=== PATIENT | male | born 1985 | race American Indian/Alaskan Native ===

== ENCOUNTER 2017-05-29 21:09 | Emergency (ER) | payer MEDICAID ==
[2017-05-29 21:09] VITALS: BMI 26.6
[2017-05-29 21:17] VITALS: TEMP 97.8; O2SAT 99
--- NOTE | 2017-05-29 21:31 | ED PDOC ---
HPI: Psych/Substance Abuse Time Seen by Provider: 05/29/17 21:20 Chief Complaint (Nursing): Substance Abuse History Per: EMS Onset/Duration Of Symptoms: Unknown Current Symptoms Are (Timing): Still Present Additional Complaint(s): Brought by EMS after being found standing in street confused and dazed. Pt has no c/o. Past Medical History Vital Signs: Last Vital Signs Temp 97.8 F 05/29/17 21:14 Pulse 96 H 05/29/17 21:14 Resp 18 05/29/17 21:14 BP 137/100 H 05/29/17 21:14 Pulse Ox 99 05/29/17 21:14 - Medical History PMH: Depression, HTN (on and off) - Family History Family History: States: Unknown Family Hx - Immunization History Hx Tetanus Toxoid Vaccination: No Hx Influenza Vaccination: No Hx Pneumococcal Vaccination: No - Home Medications Home Medications: Ambulatory Orders Medication Instructions Recorded Cyclobenzaprine [Cyclobenzaprine 10 mg PO TID #21 tab 04/06/17 HCl] Ibuprofen [Motrin] 600 mg PO Q8 #30 tab 04/06/17 - Allergies Allergies/Adverse Reactions: Allergies Allergy/AdvReac Type Severity Reaction Status Date / Time Penicillins Allergy RASH Verified 05/29/17 21:13 Review of Systems Review Of Systems: ROS cannot be obtained secondary to pt's inabilty to answer questions. Physical Exam - Reviewed Nursing Documentation Reviewed: Yes Vital Signs Reviewed: Yes - Physical Exam Appears: Positive for: Non-toxic, No Acute Distress Head Exam: Positive for: ATRAUMATIC, NORMAL INSPECTION, NORMOCEPHALIC Skin: Positive for: Normal Color, Warm, DRY Eye Exam: Positive for: EOMI, Normal appearance, PERRL ENT: Positive for: Normal ENT Inspection Neck: Positive for: Normal, Painless ROM Cardiovascular/Chest: Positive for: Regular Rate, Rhythm Respiratory: Positive for: CNT, Normal Breath Sounds Gastrointestinal/Abdominal: Positive for: Normal Exam, Bowel Sounds, Soft Back: Positive for: Normal Inspection Extremity: Positive for: Normal ROM, Other (No swelling or lesions) Neurologic/Psych: Positive for: Alert. Negative for: Oriented (x1), Motor/ Sensory Deficits - Laboratory Results Result Diagrams: 05/29/17 21:42 05/29/17 21:42 - ECG O2 Sat by Pulse Oximetry: 99 Disposition - Clinical Impression Clinical Impression: Altered mental status - Patient ED Disposition Is Patient to be Admitted: Transfer of Care - Disposition Disposition: Transfer of Care Disposition Time: 23:53 Condition: FAIR Forms: [employer] (Vietnamese) Patient Signed Over To: Elpidio Jasmine
[2017-05-29 21:52] LABS: BASO % 0.3 % (0.0-2.0); EOS % 0.6 % (0.0-4.0); HEMOGLOBIN 15.6 g/dL (12.0-18.0); LYMPH # 1.6 K/uL (1.0-4.3); LYMPH % 21.7 % (20.0-40.0); MEAN CELL VOLUME 96.5 fl (80.0-94.0); MEAN CORPUSCULAR HEMOGLOBIN 32.8 pg (27.0-31.0); MEAN CORPUSCULAR HGB CONC 33.9 g/dL (33.0-37.0); MEAN PLATELET VOLUME 8.2 fl (7.2-11.7); MONO # 0.5 K/uL (0.0-0.8); MONO % 7.2 % (0.0-10.0); NEUT # 5.2 K/uL (1.8-7.0); NEUT % 70.2 % (50.0-75.0); NRBC % 0.1 % (0.0-0.0); RBC 4.77 Mil/uL (4.40-5.90); RED CELL DISTRIBUTION WIDTH 12.9 % (11.5-14.5); WHITE BLOOD COUNT 7.4 K/uL (4.8-10.8)
[2017-05-29 21:58] LABS: ALB/GLOB RATIO 1.4 (1.0-2.1); ALBUMIN 4.5 g/dL (3.5-5.0); ALT/SGPT 47 U/L (21-72); AST/SGOT 37 U/L (17-59); BLOOD UREA NITROGEN 20 mg/dl (9-20); CALCIUM 10.6 mg/dL (8.4-10.2); GFR AFRICAN-AMERICAN > 60; GFR NON-AFRICAN AMERICAN > 60
[2017-05-29] MEDS ORDERED: Sodium Chloride 0.9% 1,000 ML IV STA (23:57)
[2017-05-29 23:59] LABS: BARBITURATES, UR NEGATIVE (NEGATIVE); BENZODIAZEPINES, UR NEGATIVE (NEGATIVE); OPIATES, UR NEGATIVE (NEGATIVE); PHENCYCLIDINE, UR POSITIVE (NEGATIVE)
--- NOTE | 2017-05-29 23:59 | ED PDOC ---
- Laboratory Results Result Diagrams: 05/29/17 21:42 05/29/17 21:42 - ECG O2 Sat by Pulse Oximetry: 99 (RA) Pulse Ox Interpretation: Normal Medical Decision Making Medical Decision Making: Time: 00:00 --endorsed to me pending sobriety and reevaluation noted urine tox. pt awake and alert. no SI or HI. At this hour patient is alert, awake, oriented x 3, with steady gait and speech. Patient is stable for discharge. Diagnosis is PCP and marijuana use. Patient has no psychiatric complaints. Scribe Attestation: Documented by Lilia Gomez, acting as a scribe for Mitali Magallanes MD. Provider Scribe Attestation: All medical record entries made by the Scribe were at my direction and personally dictated by me. I have reviewed the chart and agree that the record accurately reflects my personal performance of the history, physical exam, medical decision making, and the department course for this patient. I have also personally directed, reviewed, and agree with the discharge instructions and disposition. Disposition Counseled Patient/Family Regarding: Diagnosis, Need For Followup - Clinical Impression Clinical Impression: Altered mental status, Polysubstance abuse - POA Present On Arrival: None - Disposition Disposition: Routine/Home Disposition Time: 01:10 Condition: IMPROVED Additional Instructions: follow up with your primary doctor in 1-2 days return to the ED with any worsening or concerning symptoms Instructions: Polysubstance Abuse (DC) Forms: [employer] (Lao)
[2017-05-30 01:08] VITALS: BP 122/73; PULSE 61; RESP 16
--- NOTE | 2017-05-30 07:37 | CARD ---
APPROVED REPORT EKG Measurement Heart [id number] CT [id number] <Conclusion> Normal sinus rhythm Early repolarization Normal ECG
== END 2017-05-30 01:21 | disposition home or self-care (01) ==
LOC: H.ER 21:09
DX: R41.82 Altered mental status, unspecified (principal); F19.10 Other psychoactive substance abuse, uncomplicated; Z86.59 Personal history of other mental and behavioral disorders; Z88.0 Allergy status to penicillin; I10 Essential (primary) hypertension
CPT/HCPCS: 80053; 85025; 93005; 99283; G0480

== ENCOUNTER 2017-06-15 22:50 | Emergency (ER) | payer SELFPAY ==
[2017-06-15 22:50] VITALS: BMI 26.6
[2017-06-15 22:56] VITALS: RESP 18; TEMP 97.6
[2017-06-16 00:16] LABS: BASO % 0.4 % (0.0-2.0); EOS % 0.7 % (0.0-4.0); HEMOGLOBIN 14.7 g/dL (12.0-18.0); LYMPH # 1.6 K/uL (1.0-4.3); LYMPH % 22.1 % (20.0-40.0); MEAN CORPUSCULAR HEMOGLOBIN 32.8 pg (27.0-31.0); MEAN CORPUSCULAR HGB CONC 34.1 g/dL (33.0-37.0); MEAN PLATELET VOLUME 8.4 fl (7.2-11.7); MONO # 0.6 K/uL (0.0-0.8); MONO % 8.5 % (0.0-10.0); NEUT # 4.8 K/uL (1.8-7.0); NEUT % 68.3 % (50.0-75.0); RBC 4.49 Mil/uL (4.40-5.90)
[2017-06-16 00:24] LABS: BLOOD UREA NITROGEN 16 mg/dl (9-20); CALCIUM 10.4 mg/dL (8.4-10.2); GFR AFRICAN-AMERICAN > 60; GFR NON-AFRICAN AMERICAN > 60
--- NOTE | 2017-06-16 01:33 | ED PDOC ---
HPI: Psych/Substance Abuse Time Seen by Provider: 06/15/17 23:01 Chief Complaint (Nursing): Alcohol Ingestion Chief Complaint (Provider): Alcohol Intoxication ED Caveat: Intoxicated, Uncooperative History Per: Patient History/Exam Limitations: intoxication Current Symptoms Are (Timing): Still Present Suicide/Self Injury Attempted (Context): None Modifying Factor(s): Alcohol Associated Symptoms: Depression Past Medical History Vital Signs: Last Vital Signs Temp 97.6 F 06/15/17 22:54 Pulse 102 H 06/15/17 22:54 Resp 18 06/15/17 22:54 BP Pulse Ox 98 06/15/17 22:54 - Medical History PMH: Depression, HTN (on and off) - Family History Family History: States: Unknown Family Hx - Immunization History Hx Tetanus Toxoid Vaccination: No Hx Influenza Vaccination: No Hx Pneumococcal Vaccination: No - Home Medications Home Medications: Ambulatory Orders Medication Instructions Recorded Cyclobenzaprine [Cyclobenzaprine 10 mg PO TID #21 tab 04/06/17 HCl] Ibuprofen [Motrin] 600 mg PO Q8 #30 tab 04/06/17 - Allergies Allergies/Adverse Reactions: Allergies Allergy/AdvReac Type Severity Reaction Status Date / Time Penicillins Allergy RASH Verified 05/29/17 21:13 Review of Systems Review Of Systems: ROS cannot be obtained secondary to pt's inabilty to answer questions. Physical Exam - Reviewed Nursing Documentation Reviewed: Yes Vital Signs Reviewed: Yes - Physical Exam Appears: Negative for: Non-toxic Head Exam: Positive for: ATRAUMATIC, NORMAL INSPECTION, NORMOCEPHALIC Cardiovascular/Chest: Positive for: Regular Rate, Rhythm, Chest Non Tender. Negative for: Edema, Gallop, Murmur, Bradycardia, Tachycardia, Friction Rub, Irregularly Irregular Respiratory: Positive for: Normal Breath Sounds. Negative for: Crackles, Rales , Rhonchi, Stridor, Wheezing, Respiratory Distress Pulses-Carotid (L): 2+ Pulses-Radial (L): 2+ Gastrointestinal/Abdominal: Positive for: Bowel Sounds, Soft. Negative for: Tenderness Neurologic/Psych: Negative for: Oriented, Mood/Affect - Laboratory Results Result Diagrams: 06/15/17 23:59 06/15/17 23:59 - ECG O2 Sat by Pulse Oximetry: 98 Medical Decision Making Medical Decision Making: Pt cleared medically and cleared by crisis for discharge with referrals dx Substance Abuse Disposition - Clinical Impression Clinical Impression: Alcohol abuse, Alcohol ingestion, Substance abuse - Patient ED Disposition Is Patient to be Admitted: No Doctor Will See Patient In The: Office Counseled Patient/Family Regarding: Studies Performed, Diagnosis, Need For Followup - Disposition Disposition Time: 01:35 Condition: GOOD Instructions: Drug Abuse and Drug Addiction (DC), Drug Abuse Treatment Forms: [employer] (Lebanese)
[2017-06-16 02:26] VITALS: BP 117/64; PULSE 65; O2SAT 99
== END 2017-06-16 02:15 | disposition home or self-care (01) ==
LOC: H.ER 22:50
DX: F10.129 Alcohol abuse with intoxication, unspecified (principal); F19.10 Other psychoactive substance abuse, uncomplicated; F32.9 Major depressive disorder, single episode, unspecified; I10 Essential (primary) hypertension; Z88.0 Allergy status to penicillin
CPT/HCPCS: 80048; 82948; 85025; 99283; G0480

== ENCOUNTER 2018-04-26 23:46 | Emergency (ER) | payer SELFPAY ==
[2018-04-26 23:47] VITALS: BMI 26.6
[2018-04-26 23:50] VITALS: BP 132/89; PULSE 77; RESP 16; TEMP 97.8; O2SAT 100
--- NOTE | 2018-04-27 00:22 | ED PDOC ---
HPI: General Adult Time Seen by Provider: 04/27/18 00:20 Chief Complaint (Nursing): Medical Clearance Chief Complaint (Provider): MEDICAL CLEARANCE History Per: Patient (32 Y/O MALE HERE IN [employer]ICE [employer] FOR MEDICAL /PSYCHIATRIC CLEARANCE. PATIENT DENIES ANY MEDICAL PROBLEMS OR MEDICATIONS. STATES HE FEELS LIKE HE NEEDS NEBULIZING TREATMENT.) Past Medical History Reviewed: Historical Data, Nursing Documentation, Vital Signs Vital Signs: Last Vital Signs Temp 97.8 F 04/26/18 23:48 Pulse 77 04/26/18 23:48 Resp 16 04/26/18 23:48 BP 132/89 04/26/18 23:48 Pulse Ox 100 04/26/18 23:48 - Medical History PMH: Depression, HTN (on and off) Denies: Diabetes, Hepatitis, HIV, Seizures, Sexually Transmitted Disease - Family History Family History: States: Unknown Family Hx - Immunization History Hx Tetanus Toxoid Vaccination: No Hx Influenza Vaccination: No Hx Pneumococcal Vaccination: No - Home Medications Home Medications: Ambulatory Orders Medication Instructions Recorded Cyclobenzaprine [Cyclobenzaprine 10 mg PO TID #21 tab 04/06/17 HCl] Ibuprofen [Motrin] 600 mg PO Q8 #30 tab 04/06/17 - Allergies Allergies/Adverse Reactions: Allergies Allergy/AdvReac Type Severity Reaction Status Date / Time Penicillins Allergy RASH Verified 04/26/18 23:48 Review of Systems ROS Statement: Except As Marked, All Systems Reviewed And Found Negative Physical Exam - Reviewed Nursing Documentation Reviewed: Yes Vital Signs Reviewed: Yes - Physical Exam Appears: Positive for: Well, Non-toxic, No Acute Distress Head Exam: Positive for: ATRAUMATIC, NORMAL INSPECTION, NORMOCEPHALIC Skin: Positive for: Normal Color, Warm, DRY Eye Exam: Positive for: EOMI, Normal appearance, PERRL ENT: Positive for: Normal ENT Inspection Neck: Positive for: Normal, Painless ROM Cardiovascular/Chest: Positive for: Regular Rate, Rhythm Respiratory: Positive for: CNT, Normal Breath Sounds Gastrointestinal/Abdominal: Positive for: Normal Exam, Soft Back: Positive for: Normal Inspection Extremity: Positive for: Normal ROM Neurologic/Psych: Positive for: Alert, Oriented - ECG O2 Sat by Pulse Oximetry: 100 - Progress ED Course And Treament: PATIENT LOOKS WELL IN ED. NO SIGNS OF RESPIRATORY DISTRESS. Disposition - Clinical Impression Clinical Impression: Medical clearance for incarceration - Patient ED Disposition Is Patient to be Admitted: No - Disposition Disposition: Routine/Home Disposition Time: 00:22 Condition: FAIR Additional Instructions: PATIENT IS MEDICALLY AND PSYCHIATRICALLY CLEARED FOR INCARCERATION
== END 2018-04-27 01:19 ==
LOC: H.ER 23:46
DX: F32.9 Major depressive disorder, single episode, unspecified; I10 Essential (primary) hypertension; Z88.0 Allergy status to penicillin